=== PATIENT | male | born 1950 | race Caucasian/White ===

== ENCOUNTER 2017-04-18 07:47 | Day surgery (SDC) | payer MEDICARE, OTHER ==
[~2017-04-18] VITALS: Ht 190.5 cm; Wt 72.6 kg
[~2017-04-18 07:47] MED LIST: Advil200 M1 PO; Garlic1 EAC1 PO; LISI20 PO; MULTI VITAMIN1 EACH PO; PSYL5.85P PO; Rutin500 MG; TERB250; VASCULERA630 MG
[2017-05-21] MEDS ORDERED: FIBER PO (09:29)
[2017-05-21] MEDS ORDERED: LOSA50 PO (09:30)
[2017-09-11] MEDS ORDERED: AMLO5 PO (11:25)
[2017-10-02] MEDS ORDERED: ACETAMINOPHEN500 MG PO (11:10)
[2017-10-02] MEDS ORDERED: ASPI325EC PO (11:11)
[2017-10-02] MEDS ORDERED: ROXICODONE5 MG PO (11:12)
== END 2017-04-18 10:19 | disposition home or self-care (01) ==
LOC: ORSCSDS 07:47
PROVIDERS: Internal Medicine Gastroenterology
PROC: 0DBK8ZX Excision of Ascending Colon, Via Natural or Artificial Opening Endoscopic, Diagnostic (ICD-10-PCS; principal; 2017-04-18 09:00)
DX: Z86.010 Personal history of colon polyps (principal); K57.30 Diverticulosis of large intestine without perforation or abscess without bleeding; D12.2 Benign neoplasm of ascending colon; I10 Essential (primary) hypertension; G40.909 Epilepsy, unspecified, not intractable, without status epilepticus; Z79.899 Other long term (current) drug therapy
CPT/HCPCS: 88305; J7120

== ENCOUNTER → 2017-05-03 | Outpatient (CLI) | payer MEDICARE, OTHER ==
[~2017-05-03] MED LIST changes: +ACETAMINOPHEN500 MG PO; +AMLO5 PO; +ASPI325EC PO; +FIBER PO; +LOSA50 PO; +ROXICODONE5 MG PO
== END | disposition home or self-care (01) ==
LOC: LAB SHORT 08:55 → PLD 08:55
DX: C43.61 Malignant melanoma of right upper limb, including shoulder (principal)
CPT/HCPCS: 88305

== ENCOUNTER 2017-05-25 07:34 | Day surgery (SDC) | payer MEDICARE, OTHER ==
[2017-05-24 14:24] LABS: BASOPHILS ABSOLUTE AUTO 0.07 K/mm3 (0.00-0.23); BASOPHILS PERCENT AUTO 1 % (0-2); EOSINOPHILS ABSOLUTE AUTO 0.17 K/mm3 (0.00-0.68); EOSINOPHILS PERCENT AUTO 2 % (0-6); Hematocrit 45.4 % (37.0-53.0); Hemoglobin 15.1 g/dL (13.5-17.5); IMMATURE GRAN ABSOLUTE AUTO 0.06 K/mm3 (0.00-0.10); IMMATURE GRAN PERCENT AUTO 1 % (0-1); LYMPHOCYTES ABSOLUTE AUTO 2.22 K/mm3 (0.84-5.20); LYMPHOCYTES PERCENT AUTO 24 % (21-46); MONOCYTES ABSOLUTE AUTO 0.88 K/mm3 (0.16-1.47); MONOCYTES PERCENT AUTO 9 % (4-13); Mean Corpuscular HGB 30.3 pg (26.0-34.0); Mean Corpuscular HGB Conc 33.3 g/dL (31.5-36.5); Mean Corpuscular Volume 91 fL (80-100); Mean Platelet Volume 10.5 fL (9.1-12.4); NEUTROPHILS ABSOLUTE AUTO 5.94 K/mm3 (1.96-9.15); NEUTROPHILS PERCENT AUTO 64 % (41-73); Platelet Count 248 K/mm3 (150-400); RDW Coefficient Variation 12.7 % (11.7-14.2); RDW Standard Deviation 41.4 fL (35.1-46.3); Red Blood Cell Count 4.98 M/mm3 (4.30-5.90); White Blood Cell Count 9.34 K/mm3 (4.00-11.30)
[2017-05-24 15:06] LABS: Anion Gap 6 mmol/L (6-16); Blood Urea Nitrogen 17 mg/dL (8-24); CO2, Blood 29 mmol/L (21-32); Calcium, Blood 8.8 mg/dL (8.5-10.1); Chloride, Blood 103 mmol/L (98-108); Creatinine, Blood 1.13 mg/dL (0.60-1.20); Glomerular Filtration Rate >60 (60-); Glucose, Blood 93 mg/dL (70-99); Potassium, Blood 3.7 mmol/L (3.5-5.5); Sodium, Blood 138 mmol/L (136-145)
[~2017-05-25] VITALS: Ht 190.5 cm; Wt 120.8 kg
[~2017-05-25 07:34] MED LIST changes: -ACETAMINOPHEN500 MG PO; -AMLO5 PO; -ASPI325EC PO; -ROXICODONE5 MG PO
[2017-09-11] MEDS ORDERED: AMLO5 PO (11:25)
[2017-10-02] MEDS ORDERED: ACETAMINOPHEN500 MG PO (11:10)
[2017-10-02] MEDS ORDERED: ASPI325EC PO (11:11)
[2017-10-02] MEDS ORDERED: ROXICODONE5 MG PO (11:12)
== END 2017-05-25 10:55 | disposition home or self-care (01) ==
LOC: ORSCSDS 07:34
PROVIDERS: Orthopaedic Surgery
PROC: 0SBC4ZZ Excision of Right Knee Joint, Percutaneous Endoscopic Approach (ICD-10-PCS; principal; 2017-05-25 08:45)
DX: M23.221 Derangement of posterior horn of medial meniscus due to old tear or injury, right knee (principal); M23.261 Derangement of other lateral meniscus due to old tear or injury, right knee; M22.41 Chondromalacia patellae, right knee; M67.51 Plica syndrome, right knee; I10 Essential (primary) hypertension; Z87.891 Personal history of nicotine dependence; Z79.899 Other long term (current) drug therapy
CPT/HCPCS: 36415; 80048; 85025; 93005; 93010; J0171; J0690; J1100; J1885; J2250; J2405; J3010; J7120